=== PATIENT | male | born 1965 | race Caucasian/White ===

== ENCOUNTER 2021-03-19 04:46 | Emergency (ER) | payer OTHER, SELFPAY ==
[2021-03-19] MEDS ORDERED: Lidocaine 2% PF 5 ML VIAL ONE (05:07)
[2021-03-19] MEDS ORDERED: Triamcinolone 40 MG/ML VIAL IM SCH (05:15)
== END 2021-03-19 05:32 | disposition home or self-care (01) ==
LOC: CSHERS 04:46
DX: M25.561 Pain in right knee (principal); M19.90 Unspecified osteoarthritis, unspecified site
CPT/HCPCS: 20610; J2001; J3301